=== PATIENT | female | born 1955 | race Caucasian/White ===

== ENCOUNTER → 2017-05-24 | Outpatient (CLI) | payer OTHER, MEDICAID | LOC: CIMAGING 12:56 | PROVIDERS: ATTEND Surgery | DX: K46.0 Unspecified abdominal hernia with obstruction, without gangrene (principal); K76.0 Fatty (change of) liver, not elsewhere classified; M51.36 Other intervertebral disc degeneration, lumbar region; J98.4 Other disorders of lung | CPT/HCPCS: 74176-PO ==

== ENCOUNTER → 2017-07-21 | Outpatient (CLI) | payer OTHER, MEDICAID | LOC: CIMAGING 10:30 | PROVIDERS: ATTEND Family Medicine | DX: Z12.31 Encounter for screening mammogram for malignant neoplasm of breast (principal) ==

== ENCOUNTER 2017-08-09 10:59 | Observation (INO) | payer OTHER, MEDICAID ==
[2017-08-09] MEDS ORDERED: NS 1,000 ML IV ONE (11:03)
--- NOTE | 2017-08-09 11:19 | CPEKG ---
Heart Rate: 100 RR Interval: 600 P-R Interval: 144 QRSD Interval: 78 QT Interval: 320 QTC Interval: 413 P [place]: 19 QRS [place]: 12 T Wave [place]: 44 EKG Severity - ABNORMAL ECG - EKG Impression: SINUS TACHYCARDIA EKG Impression: frequent PVC Electronically Signed By: Herman Aviles 09-Aug-2017 15:29:24
[2017-08-09 11:46] LABS: PLATELET COUNT 275 10^3/uL (150-400)
[2017-08-09 11:56] LABS: INR 0.93 (0.83-1.16); PROTIME(PATIENT) 12.7 SEC (12.0-15.0)
--- NOTE | 2017-08-09 11:59 | PDGENHP ---
History & Physical Chief Complaint: svt, symptomatic History of Present Illness: svt Relevant Physical Exam: [id number]. cta. [id number] Cardiorespiratory Assessment: symptomatic svt, for ablation
[2017-08-09] MEDS ORDERED: MIDAZOLAM 2 MG/2 ML VIAL IVP ONE (12:32)
--- NOTE | 2017-08-09 12:32 | PDANEPAE ---
ANE History of Present Illness here for SVT ablation ANE Past Medical History - Cardiovascular History Hx Hypertension: No Hx Arrhythmias: Yes Hx Chest Pain: No Hx Coronary Artery / Peripheral Vascular Disease: No Hx CHF / Valvular Disease: No Hx Palpitations: Yes - Pulmonary History Hx COPD: No Hx Asthma/Reactive Airway Disease: Yes Hx Recent Upper Respiratory Infection: No Hx Oxygen in Use at Home: No Hx Sleep Apnea: No - Neurologic History Hx Cerebrovascular Accident: No Hx Seizures: No Hx Dementia: No - Endocrine History Hx Diabetes: Yes Hypothyroid: Yes Hyperthyroid: No - Renal History Hx Renal Disorders: No - Liver History Hx Hepatic Disorders: No - Neurological & Psychiatric Hx Hx Neurological and Psychiatric Disorders: No - Cancer History Hx Cancer: No - Congenital Disorder History Hx Congenital Disorders: No ANE Review of Systems Review of systems is: negative Review of Systems: ANE Patient History - Allergies Allergies/Adverse Reactions: grass pollen-sweet vernal, standardized [grass poll-sweet vernal, std.] Allergy (Intermediate, Verified 04/08/11 14:08) SNEEZY, ITCHY EYES CASHEW Allergy (Severe, Uncoded 04/08/11 14:09) ESPHOGUS COLLAPSE/VOMITING PISTACHIO Allergy (Severe, Uncoded 04/08/11 14:09) ESOPHOGUS COLLAPSES/VOMITING POLLEN Allergy (Intermediate, Uncoded 04/08/11 14:08) ITCHY EYES, SNEEZY - Home Medications Home medications: home medication list seen and reviewed Home Medications: Calcium Carb W/Vit D [Calcium Carb W/Vit D 500/200 (OTC)] 2 each PO DAILY [Last Taken Unknown] Herbals/Supplements -Info Only 1 each PO AD 12/01/12 [Last Taken Unknown] Lisinopril [Zestril 40 mg (RX)] 40 mg PO DAILY 12/01/12 [Last Taken Unknown] Lovastatin 40 mg PO DAILY 12/01/12 [Last Taken Unknown] Multivitamins [Tab-A-Nghia] 1 each PO DAILY 12/01/12 [Last Taken Unknown] [place]-3 Fatty Acids [Fish Oil 1000 mg (OTC)] 1,000 mg PO DAILY 12/01/12 [Last Taken Unknown] Vitamin B Complex [Vitamin B Complex (OTC)] 1 each PO DAILY 12/01/12 [Last Taken Unknown] metFORMIN HCL [Glucophage 500 mg (RX)] 1,000 mg PO BIDMEAL 12/01/12 [Last Taken Unknown] DULoxetine [Cymbalta 30 MG (RX)] 60 mg PO BID 03/31/13 [Last Taken Unknown] Hydrochlorothiazide [HCTZ (*)] 25 mg PO DAILY 08/02/17 [Last Taken Unknown] Levothyroxine [Synthroid 125 mcg (*)] 125 mcg PO DAILY06 08/02/17 [Last Taken Unknown] Liraglutide [Victoza 3-David] 1.2 mg SQ DAILY 08/02/17 [Last Taken Unknown] Naproxen Sodium [Aleve 220 MG (*)] 440 mg PO BID PRN 08/02/17 [Last Taken Unknown] - NPO status NPO Status: no food or drink >8 hours - Anes Hx Anes Hx: no prior problems - Smoking Hx Smoking Status: Never smoked ANE Labs/Vital Signs - Labs Result Diagrams: 08/09/17 11:23 08/09/17 11:23 - Vital Signs Vital Signs: reviewed preoperatively; see RN documention for details Height: 157.48 cm Weight: 88.451 kg ANE Physical Exam - Airway Neck exam: FROM ANE Anesthesia Plan Anesthesia Plan: general endotracheal anesthesia
[2017-08-09] MEDS ORDERED: PROPOFOL/EMULSION 500 MG/50 ML BOTTLE IV ONE ×5 (12:56→14:55)
[2017-08-09] MEDS ORDERED: LIDOCAINE 1% 300 MG/30 ML SDV ONE (13:02)
[2017-08-09] MEDS ORDERED: HEPARIN 10,000 UNIT/10 ML MDV (1,000 UNIT/ML) ONE (13:03)
[2017-08-09] MEDS ORDERED: BUPIVACAINE 0.5% 30 ML SDV ONE (13:03)
[2017-08-09] MEDS ORDERED: ISOPROTERENOL HCL/D5W 0.2 MG/50 ML BAG IV ONE (13:03)
[2017-08-09] MEDS ORDERED: fentaNYL 100 MCG/2 ML INJ ONE (15:26)
[2017-08-09] MEDS ORDERED: ONDANSETRON 4 MG/2 ML VIAL IVP PRN (15:30)
[2017-08-09] MEDS ORDERED: OXYCODONE/APAP 5/325 TAB PO PRN (15:30)
[2017-08-09] MEDS ORDERED: ACETAMINOPHEN 325 MG TAB PO PRN (15:30)
--- NOTE | 2017-08-09 15:30 | EPPROC ---
Electrophysiology Procedure Note: ELECTROPHYSIOLOGIC STUDY AND CATHETER MEDIATED ABLATION OF FOCAL RIGHT ATRIAL TACHYCARDIA PROCEDURES PERFORMED: 1. EP evaluation with RA/RV/LA pace/record, with arrhythmia induction 2. EP evaluation with RA/RV pace record, insert/reposition catheter, with arrhythmia induction 3. Intracardiac catheter ablation, SVT arrhythmogenic focus 4. 3D mapping 5. Fluoroscopy INDICATION: Recurrent SVT Catheters and anesthesia: The patient arrived in the Electrophysiology Laboratory in the fasting state. The right clavicular region, right groin, and left groin area were prepped and draped in the usual sterile manner. Anesthesiologist Dr. Ethel Garrison administered propofol anesthesia. Appropriate non-invasive blood pressure, pulse oximetry and end-tidal CO2 monitoring was established. All catheters were placed percutaneously using the modified Seldinger technique , and advanced into position under fluoroscopic guidance. One #7 German deflectable octapolar electrode catheter was advanced to the His-bundle position via the left femoral vein (2mm spacing; except the proximal ring which was 25cm from the tip used for unipolar recordings). One #7 German deflectable catheter with 10 pairs of electrodes was placed via the left femoral vein into the coronary sinus. Andrew catheter was placed in the RA. Programmed stimulation was performed from the right atrium, left atrium ( coronary sinus) and right ventricle. Parahisian pacing demonstrated all retrograde conduction over the AV node Heparin was administered to keep ACT > 200 seconds. There was no antegrade slow AV jake pathway conduction. WBB antegrade 320/310 ms WBB retrograde 240/230 ms Programmed stimulation of right atrium at baseline induced an atrial tachycardia CL 405 ms. AV dissociation was induced with ventricular overdrive pacing confirming atrial tachycardia. High resolution mapping of the atrial tachycardia was done using #7 German mapping catheter. A 3D mapping system (H[employer]at) was used. A detailed 3D map of the right atrium and coronary sinus showed earliest atrial activation along the mid lateral carlton terminalis annulus. Earliest atrial activation began 30 ms before the onset of the P wave with a negative deflection in the unipolar electrogram. Fragmented EGM was seen at this site duration 70 ms. First RF application at this site accelerated and then terminated AT. Further RF applications were delivered around this site. Programmed stimulation in the baseline state and during infusion of isoproterenol 1, 2 and 4 mcg/min post ablation was performed. No tachycardia could be induced. The catheters were removed. The patient was transferred to the cardiovascular holding area in stable condition. Vascular access sheaths were removed in the holding area. There were no apparent complications. CONCLUSIONS: 1. Focal atrial tachycardia arising at lateral aspect of mid carlton terminalis. 2. Successful ablation of focal atrial tachycardia. 3. No apparent complications. Patient Problems: Problems Problem Status Onset Supraventricular tachycardia Acute
[2017-08-09] MEDS ORDERED: NAPROXEN SODIUM 220 MG TAB PO PRN (15:31)
[2017-08-09] MEDS ORDERED: ATROPINE SULFATE 1 MG/10 ML SYR ONE (15:36)
--- NOTE | 2017-08-09 15:44 | POSTANESTH ---
Post Anesthetic Evaluation Cardiovascular Status: Normal, Stable Respiratory Status: Normal, Stable Level of Consciousness/Mental Status: Can Participate in Eval Pain Control: Adequate, Prn Tx Ordered Nausea/Vomiting Control: Adequate, Prn Tx Ordered Complications Possibly Related to Anesthesia: None Noted
--- NOTE | 2017-08-09 16:08 | CPEKG ---
Heart Rate: 96 RR Interval: 625 P-R Interval: 144 QRSD Interval: 78 QT Interval: 340 QTC Interval: 430 P Protection: 65 QRS Protection: 25 T Wave Protection: 38 EKG Severity - NORMAL ECG - EKG Impression: SINUS RHYTHM EKG Impression: COMPARED WITH 08/09/2017 AT 11:18, HR SLIGHTLY SLOWER AND PVCS NOW ABSENT Electronically Signed By: Alice Luciano 09-Aug-2017 19:36:45
[2017-08-09] MEDS: metFORMIN HCL 500 MG TAB PO SCH (18:06)
[2017-08-09] MEDS ORDERED: ALBUTEROL 60 PUFFS/8 GM MDI IH PRN (20:25)
[2017-08-09] MEDS: DULoxetine 30 MG CAP PO SCH (21:28)
[2017-08-10 05:55] LABS: PLATELET COUNT 243 10^3/uL (150-400)
[2017-08-10] MEDS ORDERED: LEVOTHYROXINE 125 MCG TAB PO SCH (06:00)
[2017-08-10 06:04] LABS: INR 0.98 (0.83-1.16); PROTIME(PATIENT) 13.2 SEC (12.0-15.0)
[2017-08-10 06:11] LABS: CREATINE KINASE 90 IU/L (0-156)
[2017-08-10 08:00] VITALS: RESP 16
--- NOTE | 2017-08-10 08:47 | ECHO ---
[email or web address] [address] [address] Main: [phone] Fax: Transthoracic Echocardiogram Name: BRYAN QUEEN MR#: [id number] Study Date: 08/10/2017 Study Time: 08:00 AM Date of : 1955 Age: 61 year(s) Height: 157.5 cm (62 in.) Weight: 88.45 kg (195 lb.) BSA: 1.89 m2 Gender: Female Examination: Echo Indication: F/U post EP study Image Quality: Contrast: Requested by: Herman Aviles BP: 161 mmHg/94 mmHg Heart Rate: Rhythm: Indication: F/U post EP study Procedure Staff Flower Cutter: Cindy Alfonso Physician: Herman Aviles Requesting Provider: Conclusions: Normal global systolic LV function. The ejection fraction is estimated to be 65-70 %. Mild mitral valve regurgitation is present. Measurements: Chambers Valvular Assessment AV/MV Valvular Assessment TV/PV Normal Normal Normal Name Value Range Name Value Range Name Value Range Ao Darlene (MM): 2.9 cm (2.2 cm-3.7 AV meanP mmHg ( - ) TR Vmax: 2.64 mm/s ( - ) cm) MV E Vmax: 0.92 m/s ( - ) TR PGmax: 28 mmHg ( - ) IVSd (2D): 0.8 cm (0.6 cm-1.1 MV A Vmax: 1.19 m/s ( - ) syst. PAP: 33 mmHg ( - ) cm) MV E/A: 0.77 ( - ) LVDd (2D): 4.3 cm (3.9 cm-5.3 cm) LVDs (2D): 2.9 cm (2.1 cm-4 cm) LVPWd (2D): 0.8 cm ( - ) LVEF (MOD4): 68 % (>=55 %) EF Range: 65-70 % Continued Measurements: Chambers Valvular Assessment AV/MV Valvular Assessment TV/PV Name Value Name Value Name Value LADs: 3.5 cm MV E/E' Septal: 14.80 CVP (est.): 5 mmHg LADs Lon.6 cm MV E/E' Lateral: 12.30 LA Area: 16.7 cm2 Additional Vessels Patient: BRYAN QUEEN Study Date: 08/10/2017 Page 1 of 2 08:00 AM Name Value Ao Ascendin.3 cm Findings: Left Ventricle: Normal size left ventricle. No LV hypertrophy. Normal global systolic LV function. The ejection fraction is estimated to be 65-70 %. No regional wall motion abnormality. Right Ventricle: Normal size right ventricle. Left Atrium: The left atrium is normal in size. Right Atrium: The right atrium is normal in size. Mitral Valve: Mild mitral annular calcification. Mild mitral valve regurgitation is present. Aortic Valve: The aortic valve is normal in appearance and function. Tricuspid Valve: The tricuspid valve is normal in appearance and function. Trivial tricuspid valve regurgitation. Pulmonic Valve: The pulmonic valve is normal in appearance and function. Aorta: The aorta is normal. Pericardium: No pericardial effusion. (No Signature Object) Patient: BRYAN QUEEN Study Date: 08/10/2017 Page 2 of 2 08:00 AM D:_[id number]
[2017-08-10] MEDS: DULoxetine 30 MG CAP PO SCH (08:52)
[2017-08-10] MEDS: metFORMIN HCL 500 MG TAB PO SCH (08:52)
--- NOTE | 2017-08-10 08:56 | CPEKG ---
Heart Rate: 89 RR Interval: 674 P-R Interval: 116 QRSD Interval: 72 QT Interval: 328 QTC Interval: 400 P [place]: 0 QRS [place]: 0 T Wave E[place]: 51 EKG Severity - ABNORMAL ECG - EKG Impression: Artifact, sinus rhythm, need to repeat ECG Electronically Signed By: Herman Aviles 10-Aug-2017 08:58:39
[2017-08-10] MEDS ORDERED: PRAVASTATIN SODIUM 40 MG TAB PO SCH (09:00)
[2017-08-10] MEDS ORDERED: LISINOPRIL 40 MG TAB PO SCH (09:00)
[2017-08-10] MEDS ORDERED: HYDROCHLOROTHIAZIDE 25 MG TAB PO SCH (09:00)
[2017-08-10] MEDS ORDERED: ASPIRIN 81 MG CHEWABLE TAB PO SCH (09:00)
[2017-08-10] MEDS ORDERED: Liraglutide [Victoza 3-Pak] 1.2 MG SQ SCH (09:00)
--- NOTE | 2017-08-10 09:11 | CPEKG ---
Heart Rate: 87 RR Interval: 690 P-R Interval: 140 QRSD Interval: 84 QT Interval: 356 QTC Interval: 429 P [place]: 58 QRS [place]: 24 T Wave [place]: 37 EKG Severity - OTHERWISE NORMAL ECG - EKG Impression: SINUS RHYTHM EKG Impression: VENTRICULAR PREMATURE COMPLEX Electronically Signed By: Herman Aviles 10-Aug-2017 11:19:11
[2017-08-10 12:11] VITALS: TEMP 98.5; O2SAT 98
[2017-08-10 12:28] VITALS: BP 141/79; PULSE 87
--- NOTE | 2017-08-10 17:16 | ASDISCHSUM ---
Discharge Information Plan Status:Home with No Needs Medically Cleared to Leave:08/09/2017 Discharge Date:08/10/2017 12:32 PM CM D/C Disposition:Home, Routine, Self-Care ADT D/C Disposition:Home, Routine, Self-Care Projected Discharge Date:08/10/2017 12:00 AM Transportation at D/C:Family Discharge Delay Reason: Follow-Up Date:08/10/2017 12:00 AM Discharge Slot: Final Diagnosis:SVT-ablation Placement Information Patient Contact Information Contact Name:JUANCARLO Relationship:Son Address: Work Phone: City: [place] Phone: [place] Code: Email: Financial Information Financial Class: Primary Plan Desc:MEDICARE OUTPATIENT Primary Plan Number:[id number] Secondary Plan Desc:MEDICAID HEALTH FIRST CO OP Secondary Plan Number:[id number] Assessment Information Case Management Discharge Plan Note Case Management Discharge Discharge Order Complete? Answers: Yes Patient to Obtain Answers: via Family Medications Transportation Arranged Answers: Family/Friends Transport will Pick (Date 08/10/2017 12:00 AM & Time) Family Notified Answers: Yes Notes: Family to transport Discharge Comments Notes: 61 year old female admitted for SVT-ablation. No needs an discharge. Date Signed: 08/10/2017 05:15 PM Electronically Signed By:Wendy Navarro LCSW Intervention Information Intervention Type:FRANCIS-Signed Date of Service:08/10/2017 10:29 AM Patient Type:Observation Staff Member:Emerald Perez Hours: Discipline: Severity: Comment:
[2017-08-10] MEDS ORDERED: FLUTICASONE/SALMETER 100/50MCG DISKUS IH SCH (21:00)
--- NOTE | 2017-08-10 23:04 | GDS ---
[f rep st] DISCHARGE SUMMARY ADMIT DIAGNOSES: 1. Atrial tachycardia. 2. Planned electrophysiology study with possible ablation. DISCHARGE DIAGNOSES: 1. Electrophysiology study done. 2. Successful supraventricular tachycardia ablation. COURSE OF HOSPITALIZATION: This nice lady was seen in clinic by Dr. Herman Aviles, finding her in atria l tachycardia. She did not respond to medication therapy, and it was recommended to proceed with EP study with possible ablation. She was in agreement with this plan. She was taken to the electrophys iology lab by Dr. Herman Aviles on August 09, 2017, where he was able to successfully isolate and ablat e right atrial tachycardia. SVT mapping was done. She had no complications. She was taken to ICU s tep down for overnight observation and evaluation where she has done well. She has not noted any florian akthrough palpitations. EKG shows a regular sinus rhythm with rare PVC. Echocardiogram was then showing ejection fraction of 65% to 70%, mild MR, no pericardial effusion. She had an elevated blood pressure of 160/94 in the morning. Her blood pressure was rechecked prior to discharge and it was 140/76. She will continue on lisinopril 40 and hydrochlorothiazide 25 mg. MEDICATIONS: She will go home on aspirin 81 mg 1 tablet daily, Tylenol 325 mg every 4 hours as neede d, not to exceed 3 g daily, Aleve 440 mg twice daily as needed, hydrochlorothiazide 25 mg daily, Vict chirag 1.2 mg subcu daily, Synthroid 125 mcg daily, Cymbalta 60 mg twice daily, lisinopril 40 mg daily, lovastatin 40 mg daily, metformin 1000 mg twice daily with meal, calcium carb with vitamin D 2 tablet s daily, multivitamin 1 tablet daily, omega-3 fatty acid 1000 mg daily, vitamin B complex supplements 1 daily. ALLERGIES: Grass; pollen; sweet vernal, standardized; cashew; pistachio. PHYSICAL EXAMINATION: VITAL SIGNS: On day of discharge, blood pressure 141/79, heart rate 89 and re gular, oxygen saturation 98%. EKG showed regular sinus rhythm with a single PVC. Heart rate regular . No murmurs, rubs, gallops. RESPIRATORY: Lung sounds are clear to auscultation. No wheezes, rale s, or rhonchi. EXTREMITIES: No peripheral edema. : Bilateral groin sites are intact, with no bl eeding, induration, or tenderness. DISCHARGE PLAN: She will follow up with Dr. Aviles in 3-4 weeks. Appointment to be called to her. She will follow up with her primary skin specialist, Dr. Ezequiel Jose, in 1-2 weeks. Groin site instructions and precautions were given verbally and written. No lifting, pushing, pulling greater than 10 pounds for 1 week. No sitting in a tub of water for 1 weeks. Should cath sites bleed, hold pressure continuously, go to the emergency room. Call the office for any concerns or questions. At this time she currently is stable for discharge. /[id number]/MODL
== END 2017-08-10 12:32 | disposition home or self-care (01) ==
LOC: FCATH 10:59 → F2N 15:30
PROVIDERS: ADMIT Internal Medicine Cardiovascular Disease; ATTEND Internal Medicine Cardiovascular Disease
PROC: 02563ZZ Destruction of Right Atrium, Percutaneous Approach (ICD-10-PCS; principal; 2017-08-09)
DX: I47.1 Supraventricular tachycardia (principal)
CPT/HCPCS: 93005; 93306; 93613; 93621; 93623; 93653; C1730; C1731; C1732; J1644; J2704; J3010; J0461

== ENCOUNTER → 2017-09-10 | Outpatient (CLI) | payer OTHER, MEDICAID | LOC: FIMAGING 09:00 | PROVIDERS: ATTEND Orthopaedic Surgery | DX: T84.032A Mechanical loosening of internal right knee prosthetic joint, initial encounter (principal); Z96.651 Presence of right artificial knee joint | CPT/HCPCS: 78315; A9503 ==

== ENCOUNTER 2017-11-05 13:11 | Observation (INO) | payer OTHER, MEDICAID ==
--- NOTE | 2017-11-05 12:22 | PDHPUP ---
History & Physical Update H&P update statement: This history and physical update is based on an assessment of the patient which was completed after admission or registration (within 24 hours), but prior to the surgery/procedure. H&P update: H&P reviewed & patient examined, no change in patient's condition since H&P completed
--- NOTE | 2017-11-05 12:41 | POSTOPPROG ---
<Soni Dougherty - Last Filed: 11/05/17 12:40> Post Op Note Date of Operation: 11/05/17 Surgeon: Bay Ortiz Vocational Education Professional: Soni Dougherty PA-C Anesthesia: GET(General Endotracheal) Pre-op Diagnosis: ventral hernia Post-op Diagnosis: ventral hernia Inf/Abcess present in the surg proc area at time of surgery?: No EBL: Minimal Complications: no immediate <Bay Ortiz - Last Filed: 11/05/17 16:45> Post Op Note Date of Operation: 11/05/17 Surgeon: Bay Ortiz Procedure: Lap ventral hernia with [id number] Symbiotex Findings: ivette umbilical midline incisional hernia Specimen(s): none
[~2017-11-05 13:11] MED LIST: ACETAMINOPHEN 325 MG TAB PO PRN; HYDROCODONE/APAP 5/325 TAB PO PRN; HYDROmorphone HCL/NS 0.5 MG/ML SYR IVP PRN; ONDANSETRON 4 MG/2 ML VIAL IVP PRN; ZOLPIDEM TARTRATE 5 MG TAB PO PRN
[2017-11-05] MEDS ORDERED: LR 1,000 ML IV ONE (13:42)
[2017-11-05] MEDS ORDERED: BUPIVACAINE/EPI 0.5% 30 ML SDV ONE (14:03)
[2017-11-05] MEDS ORDERED: MIDAZOLAM 2 MG/2 ML VIAL IVP ONE (14:26)
--- NOTE | 2017-11-05 14:26 | PDANEPAE ---
ANE History of Present Illness ventral hernia repair ANE Past Medical History - Cardiovascular History Hx Hypertension: Yes Hx Arrhythmias: Yes Hx Chest Pain: No Hx Coronary Artery / Peripheral Vascular Disease: No Hx CHF / Valvular Disease: No Hx Palpitations: Yes Cardiovascular History Comment: Ablation 18 for PSVT; diuretic - Pulmonary History Hx COPD: No Hx Asthma/Reactive Airway Disease: Yes Hx Recent Upper Respiratory Infection: No Hx Oxygen in Use at Home: No Hx Sleep Apnea: No Sleep Apnea Screening Result - Last Documented: Negative Pulmonary History Comment: well managed w/inhalers. Pleurisy as a child-second hand smoke in home. - Neurologic History Hx Cerebrovascular Accident: No Hx Seizures: No Hx Dementia: No - Endocrine History Hx Diabetes: Yes Endocrine History Comment: NIDDM- use Victoza. A1c ~7.0. hypothyroid. - Renal History Hx Renal Disorders: No Renal History Comment: hx of UTI's - Liver History Hx Hepatic Disorders: No - Neurological & Psychiatric Hx Hx Neurological and Psychiatric Disorders: Yes Neurological / Psychiatric History Comment: neck stiffness, occ low pain. on Cymbalta (w/naproxen) -helps w/pain in fingers,knee pain - Cancer History Hx Cancer: No - Congenital Disorder History Hx Congenital Disorders: No - GI History Hx Gastrointestinal Disorders: Yes - Other Health History Other Health History: OA. R knee pain-loose prosthesis. Ventral hernia. - Chronic Pain History Chronic Pain: Yes (R knee,hands) ANE Review of Systems Review of Systems: - Exercise capacity METS (RN): 4 METS ANE Patient History - Allergies Allergies/Adverse Reactions: grass pollen-sweet vernal, standardized [grass poll-sweet vernal, std.] Allergy (Intermediate, Verified 10/12/17 14:00) SNEEZY, ITCHY EYES CASHEW Allergy (Severe, Uncoded 04/08/11 14:09) ESPHOGUS COLLAPSE/VOMITING PISTACHIO Allergy (Severe, Uncoded 04/08/11 14:09) ESOPHOGUS COLLAPSES/VOMITING POLLEN Allergy (Intermediate, Uncoded 04/08/11 14:08) ITCHY EYES, SNEEZY - Home Medications Home Medications: Calcium Carb W/Vit D [Calcium Carb W/Vit D 500/200 (*)] 2 each PO DAILY [Last Taken 10/31/17] Herbals/Supplements -Info Only 1 each PO AD 12/01/12 [Last Taken 10/31/17] Lisinopril [Zestril 40 mg (*)] 40 mg PO DAILY 12/01/12 [Last Taken 11/04/17] Lovastatin 40 mg PO DAILY 12/01/12 [Last Taken 11/04/17] Multivitamins [Multivitamin (*)] 1 each PO DAILY 12/01/12 [Last Taken 10/31/17] metFORMIN HCL [Glucophage 500 mg (*)] 1,000 mg PO BIDMEAL 12/01/12 [Last Taken 11/04/17] DULoxetine [Cymbalta 30 MG (*)] 60 mg PO BID 03/31/13 [Last Taken 11/05/17] Hydrochlorothiazide [HCTZ (*)] 25 mg PO DAILY 08/02/17 [Last Taken 11/04/17] Levothyroxine [Synthroid 125 mcg (*)] 125 mcg PO DAILY06 08/02/17 [Last Taken ] Liraglutide [Victoza 3-David] 1.2 mg SQ DAILY 08/02/17 [Last Taken 11/04/17] Naproxen Sodium [Aleve 220 MG (*)] 440 mg PO HS 08/02/17 [Last Taken 10/29/17] Albuterol [Proventil Inhaler HFA (*)] 1 - 2 puffs IH Q4H PRN 10/08/17 [Last Taken Unknown] Fluticasone Nasal [Flonase Nasal [place]] 1 sprays NASAL DAILY PRN 10/08/17 [Last Taken Unknown] Fluticasone/Salmeter 100/50Mcg [Advair 100/50 (*)] 1 puffs IH BID 10/08/17 [ Last Taken 11/05/17] oxyCODONE IR [Oxycodone Ir (*)] 5 mg PO DAILY PRN 10/08/17 [Last Taken 10/29/17] - NPO status NPO Since - Liquids (Date): 11/04/17 NPO Since - Liquids (Time): 09:00 NPO Since - Solids (Date): 11/04/17 NPO Since - Solids (Time): 19:30 - Smoking Hx Smoking Status: Never smoked ANE Labs/Vital Signs - Vital Signs Blood Pressure: 142/89 Heart Rate: 86 Respiratory Rate: 18 O2 Sat (%): 97 Height: 157.48 cm Weight: 86.183 kg ANE Physical Exam - Airway Mallampati Score: Class 2 Mouth exam: normal dental/mouth exam - Pulmonary Pulmonary: no respiratory distress - Cardiovascular Cardiovascular: regular rate and rhythym - ASA Status ASA Status: II ANE Anesthesia Plan Anesthesia Plan: general endotracheal anesthesia
[2017-11-05] MEDS ORDERED: ONDANSETRON 4 MG/2 ML VIAL ONE (14:31)
[2017-11-05] MEDS ORDERED: ROCURONIUM 100 MG/10 ML VIAL ONE (14:31)
[2017-11-05] MEDS ORDERED: KETOROLAC 30 MG/1 ML SDV ONE (14:31)
[2017-11-05] MEDS ORDERED: DEXAMETHASONE 4 MG/ML VIAL ONE (14:31)
[2017-11-05] MEDS ORDERED: fentaNYL 100 MCG/2 ML INJ ONE (14:32)
[2017-11-05] MEDS ORDERED: LIDOCAINE 2% 5 ML SDV ONE (14:32)
[2017-11-05] MEDS ORDERED: PROPOFOL 200 MG/20 ML VIAL ONE (14:32)
[2017-11-05] MEDS ORDERED: ALBUTEROL HFA ANES ONLY 200 PUFFS/8.5 GM MDI IH ONE (14:55)
[2017-11-05] MEDS ORDERED: METOPROLOL TARTRATE 5 MG/5 ML INJ ONE (15:18)
[2017-11-05] MEDS ORDERED: LABETALOL HCL 5 MG/ML 20 ML MDV ONE (15:22)
[2017-11-05] MEDS ORDERED: HYDROmorphONE/DILAUDID 2 MG/ML INJ ONE (16:12)
[2017-11-05] MEDS ORDERED: oxyCODONE IR 15 MG TAB PO PRN (16:45)
[2017-11-05] MEDS ORDERED: FLUTICASONE NASAL 120 SPRAYS/16 GM MDI NS PRN (16:46)
[2017-11-05] MEDS ORDERED: ALBUTEROL 60 PUFFS/8 GM MDI IH PRN (16:46)
[2017-11-05] MEDS ORDERED: SUGAMMADEX SODIUM 200 MG/2 ML VIAL IVP ONE (16:47)
[2017-11-05] MEDS ORDERED: PHENYLEPHRINE HCL 100 MCG/ML SYR IVP PRN (17:14)
[2017-11-05] MEDS ORDERED: NALOXONE HCL 0.4 MG/ML INJ IVP PRN (17:14)
[2017-11-05] MEDS ORDERED: HYDROmorphONE/DILAUDID 2 MG/ML INJ IVP PRN (17:14)
[2017-11-05] MEDS ORDERED: ONDANSETRON 4 MG/2 ML VIAL IVP PRN (17:14)
[2017-11-05] MEDS ORDERED: ALBUTEROL 3 ML DEYVIAL IH PRN (17:14)
[2017-11-05] MEDS ORDERED: NS 500 ML IV PRN (17:14)
[2017-11-05] MEDS: KETOROLAC 15 MG/1 ML SDV IVP SCH ×2 (18:28→23:23)
[2017-11-05] MEDS: metFORMIN HCL 500 MG TAB PO SCH (18:28)
--- NOTE | 2017-11-05 19:18 | GOP ---
[f rep st] OPERATIVE REPORT DATE OF OPERATION: 11/05/2017 SURGEON: Bay Ortiz MD GENERAL MERCHANDISE MANAGER: Soni Dougherty PA-C. ANESTHESIA: General. ANESTHESIOLOGIST: Dr. Shelby. PREOPERATIVE DIAGNOSIS: Ventral hernia. POSTOPERATIVE DIAGNOSIS: Ventral hernia. PROCEDURE PERFORMED: Laparoscopic ventral herniorrhaphy with 20 x 25 cm Symbotex mesh. FINDINGS: See below. INDICATIONS FOR PROCEDURE: 62-year-old female with a history of complicated diverticulitis requiring multiple resections, colostomy takedown's and re- anastomoses. She presents with a symptomatic midline incisional hernia. She is undergoing surgical repair at this time. Risks and benefits were explained including bleeding, infection, open conversion, recurrence, bowel injury, as well as others. All questions were answered. She desires to proceed. A ophthalmology surgical technician is standard, necessary, and customary for the safe performance of this procedure. DESCRIPTION OF PROCEDURE: After general anesthesia was induced, the abdomen was preinjected with 0.5% Marcaine with epinephrine. The left upper quadrant was entered with a Veress needle. This was followed by a 5 mm trocar placement. A total of three additional 5 mm ports were subsequently placed within the right upper quadrant and left lower quadrant. Extensive adhesiolysis was completed, inclusive of omentum and small bowel throughout the entire underside of the abdominal wall. This was taken out to bilateral pericolic gutters. Around the level of the umbilicus was an obvious attenuated ventral defect. No definite additional [place]an-cheese midline holes were able to be identified. A 20 x 25 cm Parietex mesh was tagged for orientation and dropped into the abdominal cavity through a subsequent 10 mm trocar which was placed through the hernial orifice itself. The trocar was removed, and the hernial defect was closed primarily with a running Vicryl suture. The mesh was tacked to the abdominal wall using multiple absorbable tacks, allowing for complete coverage of the lower midline fascia working toward the epigastrium. Satisfactory hemostasis was assured throughout the abdominal cavity. No visceral injuries were identified, specifically at the Veress needle placement site, as well as remaining abdominal cavity. Omentum was noted to be present covering all visceral contents. Trocars were removed under direct visualization. The wounds were closed in layers with absorbable suture by Dermabond. The patient was taken to Recovery uneventfully. Copy requested to: Dr. Tapia /[id number]/MODL MTDD
[2017-11-05] MEDS: FLUTICASONE/SALMETER 100/50MCG DISKUS IH SCH ×2 (21:03→22:08)
[2017-11-05] MEDS: oxyCODONE IR 5 MG TAB PO PRN ×2 (21:55→22:41)
[2017-11-05] MEDS: DULoxetine 30 MG CAP PO SCH (21:55)
[2017-11-06] MEDS: oxyCODONE IR 5 MG TAB PO PRN ×2 (04:30→07:49)
[2017-11-06] MEDS: KETOROLAC 15 MG/1 ML SDV IVP SCH (05:37)
[2017-11-06] MEDS ORDERED: LEVOTHYROXINE 125 MCG TAB PO SCH (06:00)
[2017-11-06] MEDS: metFORMIN HCL 500 MG TAB PO SCH (07:48)
[2017-11-06 08:55] VITALS: BP 132/78
[2017-11-06] MEDS: DULoxetine 30 MG CAP PO SCH (08:55)
[2017-11-06] MEDS ORDERED: PRAVASTATIN SODIUM 40 MG TAB PO SCH (09:00)
[2017-11-06] MEDS ORDERED: LISINOPRIL 40 MG TAB PO SCH (09:00)
[2017-11-06] MEDS ORDERED: HYDROCHLOROTHIAZIDE 25 MG TAB PO SCH (09:00)
[2017-11-06] MEDS ORDERED: Liraglutide [Victoza 3-Pak] 1.2 MG SQ SCH (09:00)
[2017-11-06] MEDS: FLUTICASONE/SALMETER 100/50MCG DISKUS IH SCH (09:26)
--- NOTE | 2017-11-06 10:15 | ASMTCMCOM ---
CM Note CM Note Notes: Pt. is a 62-year-old disabled woman admitted in OBS status for a central hernia surgery. Pt. in and out before SWer came on the floor. Pt. d/c'ed independently today. Date Signed: 11/06/2017 10:14 AM Electronically Signed By:Courtney Mott LCSW
--- NOTE | 2017-11-06 12:33 | PDDCSUM ---
Discharge Summary Discharge Summary: POD#1s/p lap ventral herniorrhaphy Pain fairly well controlled with opiates and Nsaids Tolerating diet OOB independently AVSS Abd soft incisions c/d No post operative complications noted d/c home f/u in 1-2 weeks in office d/c instructions in chart Rx for oxycodone All questions addressed
== END 2017-11-06 09:52 | disposition home or self-care (01) ==
LOC: F3E 13:17
PROVIDERS: ADMIT Surgery; ATTEND Surgery
PROC: 0WUF4JZ Supplement Abdominal Wall with Synthetic Substitute, Percutaneous Endoscopic Approach (ICD-10-PCS; principal; 2017-11-05 14:30)
DX: K43.9 Ventral hernia without obstruction or gangrene (principal); E03.9 Hypothyroidism, unspecified; E11.9 Type 2 diabetes mellitus without complications; E78.5 Hyperlipidemia, unspecified; I10 Essential (primary) hypertension; J45.909 Unspecified asthma, uncomplicated; Z87.19 Personal history of other diseases of the digestive system; Z96.651 Presence of right artificial knee joint
CPT/HCPCS: 49654; C1781; J1100; J1170; J1885; J2250; J2370; J2405; J2704; J3010

== ENCOUNTER → 2018-05-23 | Outpatient (CLI) | payer OTHER | LOC: FIMAGING 16:08 | PROVIDERS: ATTEND Family Medicine | DX: Z01.818 Encounter for other preprocedural examination (principal); M25.569 Pain in unspecified knee; J44.9 Chronic obstructive pulmonary disease, unspecified ==

== ENCOUNTER → 2018-07-23 | Outpatient (CLI) | payer OTHER, MEDICAID | LOC: FIMAGING 10:43 | PROVIDERS: ATTEND Physician Assistant | DX: M75.101 Unspecified rotator cuff tear or rupture of right shoulder, not specified as traumatic (principal); M75.31 Calcific tendinitis of right shoulder; M75.51 Bursitis of right shoulder ==

== ENCOUNTER → 2018-07-27 | Outpatient (CLI) | payer OTHER, MEDICAID | END | disposition home or self-care (01) | LOC: CIMAGING 08:03 | PROVIDERS: ATTEND Family Medicine | DX: Z12.31 Encounter for screening mammogram for malignant neoplasm of breast (principal) ==